=== PATIENT | male | born 1975 | race African-American/Black ===

== ENCOUNTER 2018-11-29 15:25 | Emergency (ER) | payer MEDICAID ==
[~2018-11-29] VITALS: Ht 188 cm; Wt 227.0 kg
[~2018-11-29 15:25] MED LIST: ALBU18HF2 IH; AMLO10TA80 PO; ASA5EC; ASPI-1159 PO; DILT240C91 PO; GABA-290 PO; HYDR-523 PO; HYDR25TA PO; IBUP-2030 PO; INDO50CA14 PO; LISI-604 PO; LOSA25TA3 PO; METF-414 PO; SIMV20TA6 PO; SITA50TA3 PO
[2018-11-29] MEDS ORDERED: KETOROLAC 60MG/2ML VIAL IM ONE (17:45)
[2018-11-29 19:19] LABS: BASOPHILS % 0.8 % (0.0-2.0); EOSINOPHILS % 3.2 % (0.0-5.0); HEMATOCRIT. 46.6 % (42.0-52.0); HEMOGLOBIN. 15.5 g/dL (14.0-18.0); LYMPHOCYTES % 23.9 % (20.0-50.0); MEAN CORPUSCULAR HEMOGLOBIN 25.7 pg (28.0-32.0); MEAN CORPUSCULAR VOLUME 77.7 fL (80.0-94.0); MEAN PLATELET VOLUME 8.5 fl (7.4-10.4); MONOCYTES % 9.4 % (2.0-8.0); NEUTROPHILS % 62.7 % (40.0-76.0); PLATELET 183 x1000/uL (130-400); RED CELL DISTRIBUTION WIDTH 17.3 % (11.6-14.6)
[2018-11-29 19:25] LABS: CHLORIDE 103 mEq/L (98-107)
[2018-11-29] MEDS ORDERED: ONDANSETRON 4MG ODT PO ONE (23:15)
[2018-11-29] MEDS ORDERED: MORPHINE SULFATE 10 MG/ML CPJ IM ONE (23:15)
[2018-11-30 03:20] VITALS: BP 145/74
== END 2018-11-30 03:21 | disposition home or self-care (01) ==
LOC: ER 15:25
DX: M54.41 Lumbago with sciatica, right side (principal); R07.89 Other chest pain; M79.604 Pain in right leg; E66.01 Morbid (severe) obesity due to excess calories; E11.9 Type 2 diabetes mellitus without complications; E78.00 Pure hypercholesterolemia, unspecified; I10 Essential (primary) hypertension; F17.200 Nicotine dependence, unspecified, uncomplicated; Z79.899 Other long term (current) drug therapy; Z68.44 Body mass index [BMI] 60.0-69.9, adult
CPT/HCPCS: 36415; 71045; 80053; 82962; 83880; 84484; 85025; 93005; 96372; 99284; J1885; J2270; Q0162

== ENCOUNTER 2019-08-31 21:24 | Emergency (ER) | payer MEDICAID ==
[~2019-08-31] VITALS: Ht 185.4 cm; Wt 230.0 kg
[~2019-08-31 21:24] MED LIST changes: -ASA5EC; -ASPI-1159 PO; +ASPI-1393 PO; +ASPI325T85; -INDO50CA14 PO; +INDO50CA99 PO
[2019-08-31] MEDS ORDERED: ACETAMINOPHEN 500MG TABLET PO ONE (23:00)
[2019-08-31] MEDS ORDERED: TRAMADOL 50MG TABLET PO ONE (23:00)
[2019-08-31 23:03] LABS: BASOPHILS % 0.9 % (0.0-2.0); HEMATOCRIT. 45.5 % (42.0-52.0); HEMOGLOBIN. 14.9 g/dL (14.0-18.0); LYMPHOCYTES % 20.2 % (20.0-50.0); MEAN CORPUSCULAR HEMOGLOBIN 26.1 pg (28.0-32.0); MEAN CORPUSCULAR VOLUME 79.8 fL (80.0-94.0); MEAN PLATELET VOLUME 9.2 fl (7.4-10.4); MONOCYTES % 7.9 % (2.0-8.0); PLATELET 180 x1000/uL (130-400); RED CELL DISTRIBUTION WIDTH 16.9 % (11.6-14.6)
[2019-09-01] MEDS ORDERED: OXYCODONE HCL/ACETAMINOPHEN 5/325MG TABLET PO ONE (04:00)
[2019-09-01] MEDS ORDERED: KETOROLAC 60MG/2ML VIAL IM ONE (04:00)
[2019-09-01 05:18] VITALS: BP 151/81
== END 2019-09-01 05:19 | disposition home or self-care (01) ==
LOC: ER 21:24
DX: M79.89 Other specified soft tissue disorders (principal); E66.01 Morbid (severe) obesity due to excess calories; R07.89 Other chest pain; F17.200 Nicotine dependence, unspecified, uncomplicated; E11.9 Type 2 diabetes mellitus without complications
CPT/HCPCS: 36415; 73610; 82962; 85025; 85379; 93005; 96372; 99284; J1885; Z7610

== ENCOUNTER 2019-09-13 23:14 | Emergency (ER) | payer MEDICAID ==
[~2019-09-13] VITALS: Ht 190.5 cm; Wt 214.0 kg
[2019-09-14 01:23] LABS: BASOPHILS % 0.5 % (0.0-2.0); EOSINOPHILS % 3.5 % (0.0-5.0); HEMATOCRIT. 46.3 % (42.0-52.0); HEMOGLOBIN. 15.1 g/dL (14.0-18.0); LYMPHOCYTES % 16.6 % (20.0-50.0); MEAN CORPUSCULAR HEMOGLOBIN 25.8 pg (28.0-32.0); MEAN CORPUSCULAR VOLUME 78.8 fL (80.0-94.0); MEAN PLATELET VOLUME 8.4 fl (7.4-10.4); MONOCYTES % 9.1 % (2.0-8.0); NEUTROPHILS % 70.3 % (40.0-76.0); PLATELET 232 x1000/uL (130-400); RED BLOOD CELL COUNT 5.88 mill/uL (4.7-6.1); RED CELL DISTRIBUTION WIDTH 16.2 % (11.6-14.6)
[2019-09-14 01:27] LABS: CHLORIDE 105 mEq/L (98-107)
[2019-09-14] MEDS ORDERED: KETOROLAC 30MG/ML VIAL IV ONE (01:45)
[2019-09-14 04:15] VITALS: BP 132/80
== END 2019-09-14 05:26 | disposition home or self-care (01) ==
LOC: ER 23:14
DX: M79.673 Pain in unspecified foot (principal); M25.473 Effusion, unspecified ankle; E11.9 Type 2 diabetes mellitus without complications; E78.00 Pure hypercholesterolemia, unspecified; I10 Essential (primary) hypertension; Z79.82 Long term (current) use of aspirin
CPT/HCPCS: 36415; 71045; 80053; 83880; 84484; 85025; 93005; 96374; 99284; J1885; Z7610

== ENCOUNTER 2021-01-01 04:49 | Emergency (ER) | payer MEDICAID ==
[~2021-01-01] VITALS: Ht 188 cm; Wt 152.7 kg
[~2021-01-01 04:49] MED LIST changes: -ASPI-1393 PO; +ASPI-1497 PO; +ASPI-867; -ASPI325T85; +SIMV-43 PO; -SIMV20TA6 PO
[2021-01-01] MEDS: ONDANSETRON HCL 4MG/2ML INJ IV STA (06:37)
[2021-01-01] MEDS: MORPHINE SULFATE 4 MG/ML CPJ (NOT FOR IM USE) IV STA (06:37)
[2021-01-01 06:48] LABS: BASOPHILS % 0.8 % (0.0-2.0); EOSINOPHILS % 5.2 % (0.0-5.0); HEMATOCRIT. 45.7 % (42.0-52.0); HEMOGLOBIN. 15.1 g/dL (14.0-18.0); LYMPHOCYTES % 31.8 % (20.0-50.0); MEAN CORPUSCULAR HEMOGLOBIN 27.4 pg (28.0-32.0); MEAN PLATELET VOLUME 10.3 fl (7.4-10.4); MONOCYTES % 10.1 % (2.0-8.0); NEUTROPHILS % 52.1 % (40.0-76.0); PLATELET 141 x1000/uL (130-400); RED BLOOD CELL COUNT 5.51 mill/uL (4.7-6.1); RED CELL DISTRIBUTION WIDTH 15.7 % (11.6-14.6)
[2021-01-01] MEDS: SODIUM CHLORIDE 0.9% 1,000 ML IV ONE (06:50)
[2021-01-01 06:55] LABS: CHLORIDE 108 mEq/L (98-107)
[2021-01-01 07:01] LABS: ETHANOL BLOOD < 10 mg/dL
[2021-01-01 07:03] LABS: CLARITY URINE CLEAR (CLEAR); COLOR URINE YELLOW (YELLOW); KETONES URINE NEGATIVE (NEGATIVE); LEUKOCYTE ESTERASE URINE NEGATIVE (NEGATIVE); NITRITE URINE NEGATIVE (NEGATIVE); OCCULT BLOOD URINE NEGATIVE (NEGATIVE); PH URINE 7.5 (4.5-8.0); PROTEIN URINE NEGATIVE (NEGATIVE); SPECIFIC GRAVITY URINE 1.015 (1.005-1.030)
[2021-01-01 07:04] LABS: PROTHROMBIN TIME 10.3 sec (9.6-11.0)
[2021-01-01 07:13] LABS: *AMPHETAMINES SCREEN URINE NEGATIVE (NEGATIVE); *BARBITURATES SCREEN URINE NEGATIVE (NEGATIVE)
[2021-01-01 07:14] LABS: *BENZODIAZEPINES SCREEN URINE NEGATIVE (NEGATIVE); *COCAINE SCREEN URINE NEGATIVE (NEGATIVE); CANNABINOID URINE SCREEN NEGATIVE (NEGATIVE); METHADONE URINE SCREEN NEGATIVE (NEGATIVE); OPIATES URINE SCREEN NEGATIVE (NEGATIVE); PHENCYCLIDINE URINE SCREEN NEGATIVE (NEGATIVE)
[2021-01-01 07:39] VITALS: BP 138/96
== END 2021-01-01 08:44 | disposition home or self-care (01) ==
LOC: ER 04:49
DX: R10.9 Unspecified abdominal pain (principal); I10 Essential (primary) hypertension; E11.9 Type 2 diabetes mellitus without complications; Z79.82 Long term (current) use of aspirin; Z79.899 Other long term (current) drug therapy
CPT/HCPCS: 36415; 74176; 80053; 80305; 80320; 81003; 83690; 85025; 85610; 96361; 96374; 96375; 99284; J2270; J2405; J7030; G0480

== ENCOUNTER 2021-06-01 17:09 | Emergency (ER) | payer MEDICAID ==
[~2021-06-01] VITALS: Ht 185.4 cm; Wt 146.0 kg
[~2021-06-01 17:09] MED LIST changes: -LISI-604 PO; +LISI20TA31 PO
[2021-06-01] MEDS ORDERED: MORPHINE SULFATE 4 MG/ML CPJ (NOT FOR IM USE) IV STA (18:48)
[2021-06-01] MEDS ORDERED: ONDANSETRON HCL 4MG/2ML INJ IV STA (18:48)
[2021-06-01 19:23] LABS: CLARITY URINE CLEAR (CLEAR); COLOR URINE YELLOW (YELLOW); KETONES URINE NEGATIVE (NEGATIVE); LEUKOCYTE ESTERASE URINE 2+ (NEGATIVE); NITRITE URINE NEGATIVE (NEGATIVE); OCCULT BLOOD URINE 2+ (NEGATIVE); PROTEIN URINE 1+ (NEGATIVE); SPECIFIC GRAVITY URINE 1.024 (1.005-1.030)
[2021-06-01 19:23] LABS: BASOPHILS % 0.4 % (0.0-2.0); EOSINOPHILS % 4.1 % (0.0-5.0); HEMATOCRIT. 45.4 % (42.0-52.0); HEMOGLOBIN. 15.6 g/dL (14.0-18.0); LYMPHOCYTES % 23.7 % (20.0-50.0); MEAN CORPUSCULAR HEMOGLOBIN 29.6 pg (28.0-32.0); MEAN PLATELET VOLUME 8.5 fl (7.4-10.4); MONOCYTES % 12.1 % (2.0-8.0); NEUTROPHILS % 59.7 % (40.0-76.0); PLATELET 183 x1000/uL (130-400); RED BLOOD CELL COUNT 5.28 mill/uL (4.7-6.1); RED CELL DISTRIBUTION WIDTH 14.6 % (11.6-14.6)
[2021-06-01 19:27] LABS: CHLORIDE 102 mEq/L (98-107)
[2021-06-01] MEDS ORDERED: CEFTRIAXONE 1 G PREMIX 50 ML IV ONE (20:00)
[2021-06-01] MEDS ORDERED: SULF1TAB48 MT (22:56)
[2021-06-02 00:06] VITALS: BP 140/82
== END 2021-06-02 00:06 | disposition home or self-care (01) ==
LOC: ER 17:09
DX: N39.0 Urinary tract infection, site not specified (principal); R10.9 Unspecified abdominal pain; K59.00 Constipation, unspecified; K80.80 Other cholelithiasis without obstruction; E11.9 Type 2 diabetes mellitus without complications; I10 Essential (primary) hypertension; F17.210 Nicotine dependence, cigarettes, uncomplicated; Z88.2 Allergy status to sulfonamides; Z79.82 Long term (current) use of aspirin
CPT/HCPCS: 36415; 74176; 76705; 80053; 81003; 83690; 85025; 96365; 96375; 99285; J0696; J2270; J2405; Z7610

== ENCOUNTER 2022-05-18 20:30 | Emergency (ER) | payer MEDICAID ==
[~2022-05-18] VITALS: Ht 188 cm; Wt 163.5 kg
[~2022-05-18 20:30] MED LIST changes: +SULF1TAB48 MT
[2022-05-18] MEDS ORDERED: ASPIRIN 81MG TABLET PO ONE (23:15)
[2022-05-18] MEDS ORDERED: NITROGLYCERIN 0.4MG TABLET SL SL PRN (23:15)
[2022-05-18 23:57] LABS: BASOPHILS % 0.4 % (0.0-2.0); EOSINOPHILS % 5.1 % (0.0-5.0); HEMATOCRIT. 45.8 % (42.0-52.0); LYMPHOCYTES % 28.5 % (20.0-50.0); MEAN CORPUSCULAR HEMOGLOBIN 27.9 pg (28.0-32.0); MEAN CORPUSCULAR VOLUME 85.1 fL (80.0-94.0); MEAN PLATELET VOLUME 8.5 fl (7.4-10.4); MONOCYTES % 11.3 % (2.0-8.0); NEUTROPHILS % 54.7 % (40.0-76.0); PLATELET 173 x1000/uL (130-400); RED BLOOD CELL COUNT 5.38 mill/uL (4.7-6.1); RED CELL DISTRIBUTION WIDTH 15.3 % (11.6-14.6)
[2022-05-19 00:01] LABS: CHLORIDE 105 mEq/L (98-107)
[2022-05-19 00:50] VITALS: BP 123/78
== END 2022-05-19 04:16 | disposition home or self-care (01) ==
LOC: ER 20:30
DX: R07.89 Other chest pain (principal); E11.9 Type 2 diabetes mellitus without complications; E78.00 Pure hypercholesterolemia, unspecified; I10 Essential (primary) hypertension
CPT/HCPCS: 36415; 71045; 80053; 83880; 84484; 85025; 85379; 93005; 93970; 99285; Z7610

== ENCOUNTER 2023-06-22 14:18 | Emergency (ER) | payer MEDICAID, OTHER ==
[~2023-06-22] VITALS: Ht 188 cm; Wt 171.0 kg
[2023-06-22 14:40] VITALS: BP 132/78; PULSE 72; RESP 16; TEMP 98.2; O2SAT 99
== END 2023-06-22 15:29 | disposition home or self-care (01) ==
LOC: ER 14:18
DX: S51.812D Laceration without foreign body of left forearm, subsequent encounter (principal); I10 Essential (primary) hypertension; E78.00 Pure hypercholesterolemia, unspecified; E11.9 Type 2 diabetes mellitus without complications; Z48.02 Encounter for removal of sutures; Z79.899 Other long term (current) drug therapy; Z79.82 Long term (current) use of aspirin; X58.XXXD Exposure to other specified factors, subsequent encounter
CPT/HCPCS: 99281; Z7610 ×2

== ENCOUNTER 2023-08-15 16:45 | Emergency (ER) | payer OTHER ==
[~2023-08-15] VITALS: Ht 185.4 cm; Wt 137.0 kg
[2023-08-15 17:11] VITALS: O2SAT 99
[2023-08-15] MEDS ORDERED: ACETAMINOPHEN 325MG TABLET PO ONE (19:45)
[2023-08-15 19:52] LABS: CHLORIDE 104 mEq/L (98-107); INDEX HEMOLYSI 2 (1-3); INDEX ICTERIC 1 (1-4); INDEX LIPEMIC 1 (1-3); POTASSIUM 3.8 mEq/L (3.5-5.1); SODIUM 139 mEq/L (136-145)
[2023-08-15 19:53] LABS: BASOPHILS % 0.4 % (0.0-2.0); EOSINOPHILS % 5.1 % (0.0-5.0); HEMOGLOBIN. 15.5 g/dL (14.0-18.0); LYMPHOCYTES % 25.9 % (20.0-50.0); MEAN CORPUSCULAR HEMOGLOBIN 28.7 pg (28.0-32.0); MEAN CORPUSCULAR VOLUME 87.1 fL (80.0-94.0); MEAN PLATELET VOLUME 8.6 fl (7.4-10.4); MONOCYTES % 9.9 % (2.0-8.0); NEUTROPHILS % 58.7 % (40.0-76.0); PLATELET 148 x1000/uL (130-400); RED BLOOD CELL COUNT 5.39 mill/uL (4.7-6.1); RED CELL DISTRIBUTION WIDTH 16.5 % (11.6-14.6); WHITE BLOOD COUNT 5.7 x1000/uL (4.5-11.0)
[2023-08-15 19:59] LABS: ALANINE AMINOTRANSFERASE 33 IU/L (13-61); ALBUMIN 3.6 g/dL (3.4-5.0); ASPARTATE AMINOTRANSFERASE 29 IU/L (15-37); BILIRUBIN TOTAL 0.5 mg/dL (0.1-1.0); CALCIUM 9.2 mg/dL (8.5-10.1); CARBON DIOXIDE 28 mEq/L (21-32); GLUCOSE 109 mg/dL (70-105); PROTEIN TOTAL 7.1 g/dL (6.0-8.3); UREA NITROGEN BLOOD 14 mg/dL (7-21)
[2023-08-15 20:02] LABS: TROPONIN I HIGH SENSITIVITY 6 ng/L (<78)
[2023-08-15 22:08] VITALS: BP 140/97; PULSE 80; RESP 17
[2023-08-17 13:07] LABS: HIV SCREEN 4G Non Reactive (Non Reactive)
== END 2023-08-15 22:09 | disposition home or self-care (01) ==
LOC: ER 16:45
DX: M79.12 Myalgia of auxiliary muscles, head and neck (principal); R05.9 Cough, unspecified; E11.9 Type 2 diabetes mellitus without complications; E78.00 Pure hypercholesterolemia, unspecified; I10 Essential (primary) hypertension
CPT/HCPCS: 36415; 71045; 80053; 82962; 84484; 85025; 86592; 87389; 87491; 87591; 93005; 99285

== ENCOUNTER 2024-03-26 19:11 | Emergency (ER) | payer OTHER ==
[~2024-03-26] VITALS: Ht 188 cm; Wt 167.0 kg
[~2024-03-26 19:11] MED LIST changes: +LOSA-412 PO; -LOSA25TA3 PO
[2024-03-26 19:52] VITALS: O2SAT 98
[2024-03-26 20:14] LABS: BASOPHILS % 0.8 % (0.0-2.0); HEMATOCRIT. 50.4 % (42.0-52.0); HEMOGLOBIN. 17.3 g/dL (14.0-18.0); LYMPHOCYTES % 23.9 % (20.0-50.0); MEAN CORPUSCULAR HEMOGLOBIN 30.4 pg (28.0-32.0); MEAN CORPUSCULAR HGB CONC 34.3 g/dL (31.0-37.0); MEAN CORPUSCULAR VOLUME 88.5 fL (80.0-94.0); MEAN PLATELET VOLUME 8.8 fl (7.4-10.4); MONOCYTES % 9.7 % (2.0-8.0); NEUTROPHILS % 62.6 % (40.0-76.0); PLATELET 185 x1000/uL (130-400); RED BLOOD CELL COUNT 5.69 mill/uL (4.7-6.1); RED CELL DISTRIBUTION WIDTH 17.3 % (11.6-14.6)
[2024-03-26 20:23] LABS: PROTHROMBIN TIME 10.9 sec (9.6-11.0)
[2024-03-26 20:26] LABS: CHLORIDE 105 mEq/L (98-107); POTASSIUM 4.3 mEq/L (3.5-5.1); SODIUM 136 mEq/L (136-145)
[2024-03-26 20:28] LABS: CALCIUM 9.6 mg/dL (8.7-10.4); CARBON DIOXIDE 22 mEq/L (21-32)
[2024-03-26 20:33] LABS: CREATININE 1.2 mg/dL (0.6-1.3); GLUCOSE 106 mg/dL (70-105); UREA NITROGEN BLOOD 7 mg/dL (9-23)
[2024-03-26 20:35] LABS: ALANINE AMINOTRANSFERASE 103 IU/L (10-49); ASPARTATE AMINOTRANSFERASE 149 IU/L (<34); BILIRUBIN DIRECT 0.3 mg/dL (<=3.0); PROTEIN TOTAL 8.1 g/dL (6.0-8.3)
[2024-03-26 20:51] LABS: CLARITY URINE TURBID (CLEAR); COLOR URINE DARK YELLOW (YELLOW); GLUCOSE URINE NEGATIVE (NEGATIVE); KETONES URINE TRACE (NEGATIVE); LEUKOCYTE ESTERASE URINE TRACE (NEGATIVE); NITRITE URINE NEGATIVE (NEGATIVE); OCCULT BLOOD URINE NEGATIVE (NEGATIVE); PH URINE 5.5 (4.5-8.0); PROTEIN URINE 2+ (NEGATIVE); SPECIFIC GRAVITY URINE 1.018 (1.005-1.030)
[2024-03-26 21:10] LABS: BACTERIA URINE 4+; RBC URINE 0-2 /hpf (0-2); SQUAMOUS EPITHELIAL CELL URINE 1+ /lpf (RARE/1+); WBC URINE 0-2 /hpf (0-2)
[2024-03-26 21:11] LABS: AMORPHOUS SEDIMENT URINE 1+ /lpf
[2024-03-27 04:53] VITALS: BP 129/83; PULSE 100; RESP 16; TEMP 98.6
== END 2024-03-27 05:00 | disposition home or self-care (01) ==
LOC: ER 19:11
DX: R05.9 Cough, unspecified (principal); R10.13 Epigastric pain; E11.9 Type 2 diabetes mellitus without complications; E78.00 Pure hypercholesterolemia, unspecified; I10 Essential (primary) hypertension
CPT/HCPCS: 36415; 71045; 74176; 80048; 80076; 81003; 82962; 85025; 86850; 86900; 99291

== ENCOUNTER 2024-06-14 11:55 | Emergency (ER) | payer OTHER ==
[~2024-06-14] VITALS: Ht 188 cm; Wt 158.0 kg
[2024-06-14 12:04] VITALS: O2SAT 98
[2024-06-14] MEDS: GABAPENTIN 300MG CAPSULE PO SCH (12:30)
[2024-06-14 12:40] LABS: BASOPHILS % 0.3 % (0.0-2.0); HEMATOCRIT. 43.5 % (42.0-52.0); HEMOGLOBIN. 14.2 g/dL (14.0-18.0); LYMPHOCYTES % 12.9 % (20.0-50.0); MEAN CORPUSCULAR HEMOGLOBIN 27.9 pg (28.0-32.0); MEAN CORPUSCULAR HGB CONC 32.7 g/dL (31.0-37.0); MEAN CORPUSCULAR VOLUME 85.4 fL (80.0-94.0); MEAN PLATELET VOLUME 8.5 fl (7.4-10.4); MONOCYTES % 9.9 % (2.0-8.0); NEUTROPHILS % 74.9 % (40.0-76.0); PLATELET 214 x1000/uL (130-400); RED BLOOD CELL COUNT 5.09 mill/uL (4.7-6.1); RED CELL DISTRIBUTION WIDTH 14.9 % (11.6-14.6); WHITE BLOOD COUNT 8.9 x1000/uL (4.5-11.0)
[2024-06-14] MEDS: KETOROLAC 30MG/ML VIAL IV ONE (12:43)
[2024-06-14] MEDS: SODIUM CHLORIDE 0.9% 1,000 ML IV ONE (12:43)
[2024-06-14 12:44] LABS: CHLORIDE 104 mEq/L (98-107); POTASSIUM 3.6 mEq/L (3.5-5.1); SODIUM 137 mEq/L (136-145)
[2024-06-14 12:45] LABS: CARBON DIOXIDE 28 mEq/L (21-32)
[2024-06-14 12:46] LABS: CALCIUM 9.8 mg/dL (8.7-10.4)
[2024-06-14 12:50] LABS: CREATININE 0.9 mg/dL (0.6-1.3); GLUCOSE 112 mg/dL (70-105)
[2024-06-14 12:51] LABS: ETHANOL BLOOD < 10 mg/dL (<10); UREA NITROGEN BLOOD 16 mg/dL (9-23)
[2024-06-14 12:52] LABS: TROPONIN I HIGH SENSITIVITY 4 ng/L (3.0-53)
[2024-06-14] MEDS: ONDANSETRON HCL 4MG/2ML INJ IV ONE (13:01)
[2024-06-14] MEDS: MORPHINE SULFATE 4 MG/ML INJ (FOR IV/IM USE) IV ONE (13:01)
[2024-06-14] MEDS: HYDROCODONE/ACETAMINOPHEN 7.5/325MG TABLET PO ONE (19:59)
[2024-06-14 21:30] VITALS: BP 163/59; PULSE 77; RESP 18; TEMP 98.3
== END 2024-06-14 21:40 | disposition short-term general hospital (02) ==
LOC: ER 11:55 → EDBEDREQ 14:29 → CANBEDREQ 15:29 → ER 21:40
DX: R26.2 Difficulty in walking, not elsewhere classified (principal); E11.40 Type 2 diabetes mellitus with diabetic neuropathy, unspecified; E11.9 Type 2 diabetes mellitus without complications; E78.00 Pure hypercholesterolemia, unspecified; I10 Essential (primary) hypertension; Z79.899 Other long term (current) drug therapy
CPT/HCPCS: 80048; 80320; 83880; 85025; 84484; 36415; 71045; 72100; 93005; 96374; 96375; 99285; J1885; J2405; J2270; Z7610 ×3; J7030; G0480

== ENCOUNTER 2024-07-14 16:22 | Emergency (ER) | payer OTHER ==
[~2024-07-14] VITALS: Ht 177.8 cm; Wt 85.0 kg
[2024-07-14 16:26] VITALS: BP 120/69; PULSE 88; RESP 16; TEMP 98; O2SAT 100
== END 2024-07-14 17:30 | disposition left against medical advice (07) ==
LOC: ER 16:22
DX: F10.129 Alcohol abuse with intoxication, unspecified (principal); E11.9 Type 2 diabetes mellitus without complications; E78.00 Pure hypercholesterolemia, unspecified; I10 Essential (primary) hypertension; Z79.899 Other long term (current) drug therapy
CPT/HCPCS: 99283